=== PATIENT | male | born 1960 | race Caucasian/White ===

== ENCOUNTER 2017-01-12 10:38 | Inpatient (IN) | payer BC ==
[~2017-01-12] VITALS: Ht 185.4 cm; Wt 158.6 kg
[2017-01-12] VITALS (267 sets, daily range): BP systolic 91–142; BP diastolic 37–95; PULSE 58–68; TEMP 96.3–98.8; O2SAT 50–100
[2017-01-12 11:03] LABS: BASO % 0.5 % (0.0-2.0); EOS # 0.1 (0.0-0.7); EOS % 1.3 % (0-4.0); GRAN # 5.9 (1.4-6.5); LYMPH # 0.9 (1.2-3.4); LYMPH % 11.7 % (20.0-51.0); MEAN CELL VOLUME 95 fl (80.0-100.0); MEAN CORPUSCULAR HGB CONC 32 g/dl (33.0-37.0); MEAN PLATELET VOLUME 8.9 fl (7.4-10.4); MONO # 0.5 (0.1-0.6); PLATELET COUNT 245 K/mm3 (130-400); REDCELL DISTRIBUTION WIDTH-CV 15.5 % (11.5-14.5); WHITE BLOOD COUNT 7.5 K/mm3 (4.8-10.8)
[2017-01-12 11:05] LABS: MEAN CORPUSCULAR HEMOGLOBIN 30 pg (27.0-31.0)
[2017-01-12 11:12] LABS: ALANINE AMINOTRANSFERASE 32 U/L (21-72); ALBUMIN 3.5 gm/dL (3.5-5.0); ALKALINE PHOSPHATASE 73 U/L (50-136); ANION GAP 10 mmol/L (7-16); BILIRUBIN,TOTAL 0.4 mg/dL (0.0-1.0); BLOOD UREA NITROGEN 30 mg/dL (9-20); CALCIUM 8.6 mg/dL (8.4-10.2); CARBON DIOXIDE 23 mmol/L (22-30); CHLORIDE 100 mmol/L (98-107); CREATININE, serum 1.45 mg/dL (0.66-1.25); GLUCOSE 210 mg/dL (74-106); SODIUM 133 mmol/L (137-145)
[2017-01-12 11:18] LABS: INR 1.6 (0.8-3.0); PROTHROMBIN TIME 18.4 SECONDS (9.7-12.8)
[2017-01-12 11:21] LABS: PARTIAL THROMBOPLASTIN TIME 35.7 SECONDS (26.0-37.0)
[2017-01-12 11:23] LABS: TROPONIN-I < 0.012 ng/mL (0.000-0.034)
[2017-01-12] MEDS ORDERED: NORVASC 5MG5 MG/TAB PO (12:06)
[2017-01-12] MEDS ORDERED: COREG12.5 MG PO (12:07)
[2017-01-12] MEDS ORDERED: THE MEDICINE S200 M2 PO (12:08)
[2017-01-12] MEDS ORDERED: VOLTAREN 75 DR75 MG PO (12:08)
[2017-01-12] MEDS ORDERED: FLONASEALLERGY NS (12:09)
[2017-01-12] MEDS ORDERED: NEURONTIN300 MG/CAP PO (12:09)
[2017-01-12] MEDS ORDERED: GLUCOTROL10 MG PO (12:09)
[2017-01-12] MEDS ORDERED: ADVIL200 MG PO (12:10)
[2017-01-12] MEDS ORDERED: GLUCOPHAGE1000 MG PO (12:10)
[2017-01-12] MEDS ORDERED: ZESTORETIC 25 M1 TAB PO (12:10)
[2017-01-12] MEDS ORDERED: NITROSTAT0.6 MG SL (12:11)
[2017-01-12] MEDS ORDERED: ALDACTONE 25MG25 M1 PO (12:11)
[2017-01-12] MEDS ORDERED: PROAIR HFA0.09 MG/AC IH (12:11)
[2017-01-12] MEDS ORDERED: XARELTO20 MG PO (12:13)
[2017-01-12] MEDS ORDERED: NOVOLIN N100 U/ML SQ (13:19)
[2017-01-12 19:32] LABS: HEMATOCRIT 22.1 % (42.0-52.0)
[2017-01-13] VITALS (424 sets, daily range): BP systolic 116–159; BP diastolic 40–85; PULSE 53–65; TEMP 97–98.8; O2SAT 71–100
[2017-01-13 00:19] LABS: HEMATOCRIT 20.4 % (42.0-52.0); HEMOGLOBIN 6.5 g/dl (13.5-18.0)
[2017-01-13 05:53] LABS: ADD PATHOLOGY DIFF REVIEW NO
[2017-01-13 06:00] LABS: MEAN CELL VOLUME 95 fl (80.0-100.0); MEAN CORPUSCULAR HGB CONC 31 g/dl (33.0-37.0); MEAN PLATELET VOLUME 8.8 fl (7.4-10.4); PLATELET COUNT 237 K/mm3 (130-400); RED BLOOD COUNT 2.57 M/mm3 (4.20-5.60); REDCELL DISTRIBUTION WIDTH-CV 16.2 % (11.5-14.5); WHITE BLOOD COUNT 6.4 K/mm3 (4.8-10.8)
[2017-01-13 06:03] LABS: HEMATOCRIT 24.4 % (42.0-52.0); HEMOGLOBIN 7.6 g/dl (13.5-18.0); MEAN CORPUSCULAR HEMOGLOBIN 30 pg (27.0-31.0)
[2017-01-13 06:10] LABS: CALCIUM 9.1 mg/dL (8.4-10.2); CREATININE, serum 1.09 mg/dL (0.66-1.25); MAGNESIUM 2.1 mg/dL (1.6-2.3); POTASSIUM 4.8 mmol/L (3.4-5.0)
[2017-01-13 06:10] LABS: ANISOCYTOSIS 1+; BAND 15 % (0-10); BASOPHIL 1 % (0-2); EOSINOPHIL 2 % (0-4); NEUTROPHILS 58 % (42.0-75.2); PLATELET ESTIMATE NORMAL (NORMAL); TOTAL CELLS COUNTED 100
[2017-01-13 16:05] LABS: HEMATOCRIT 25.6 % (42.0-52.0); HEMOGLOBIN 8.2 g/dl (13.5-18.0)
[2017-01-14 05:44] VITALS: BP 105/45; PULSE 65; TEMP 98.2
[2017-01-14 08:01] LABS: HEMATOCRIT 25.5 % (42.0-52.0); HEMOGLOBIN 8.2 g/dl (13.5-18.0); RETIC % 4.9 % (0.5-3.52)
[2017-01-14 08:50] LABS: TOTAL IRON BINDING CAPACITY 425 ug/dL (261-462)
[2017-01-14 09:02] LABS: FERRITIN 12 ng/mL (18-464)
[2017-01-14 09:39] VITALS: BP 153/57; PULSE 62
[2017-01-14] MEDS ORDERED: FERROUS SU325 MG/TAB PO (10:32)
[2017-01-14] MEDS ORDERED: ZESTRIL 10MG10 MG PO (10:33)
[2017-01-14] MEDS ORDERED: PROTONIX 40MG T40 MG PO (10:42)
[2017-01-14 12:15] VITALS: BP 119/56; PULSE 64
== END 2017-01-14 11:33 | disposition home or self-care (01) | DRG 378 ==
LOC: COL.ER 10:38 → ICU 12:02 → COL.ER 12:02 → SURG 01-13 17:50 → ICU 01-13 17:50 → SURG 01-13 17:50
PROVIDERS: Emergency Medicine; Internal Medicine; Internal Medicine Gastroenterology
PROC: 0DJ08ZZ Inspection of Upper Intestinal Tract, Via Natural or Artificial Opening Endoscopic (ICD-10-PCS; principal; 2017-01-12 17:00)
PROC: 0DJD8ZZ Inspection of Lower Intestinal Tract, Via Natural or Artificial Opening Endoscopic (ICD-10-PCS; 2017-01-14)
DX: K92.1 Melena (principal); Z68.42 Body mass index [BMI] 45.0-49.9, adult; N17.9 Acute kidney failure, unspecified; I10 Essential (primary) hypertension; I48.0 Paroxysmal atrial fibrillation; E11.9 Type 2 diabetes mellitus without complications; Z79.4 Long term (current) use of insulin; E66.9 Obesity, unspecified; F17.210 Nicotine dependence, cigarettes, uncomplicated; Z79.01 Long term (current) use of anticoagulants; D50.0 Iron deficiency anemia secondary to blood loss (chronic); G89.29 Other chronic pain; E86.0 Dehydration
CPT/HCPCS: 99223-AI; 99232-AI; 99239; C9113; J1815; J2250; J2704; J3010; J7030; P9016